=== PATIENT | male | born 1980 | race American Indian/Alaskan Native ===

== ENCOUNTER 2018-12-08 04:06 | Emergency (ER) | payer SELFPAY ==
[~2018-12-08 04:06] MED LIST: BSS 1 DROPS, TETRACAINE 0.5% 1 DROPS, FUL-GLO 1 MG OU ONE
[2018-12-08 04:17] VITALS: BP 144/84
[2018-12-08] MEDS ORDERED: TETRACAINE 0.5% ONE (04:49)
[2018-12-08] MEDS ORDERED: FUL-GLO OP ONE (04:49)
--- NOTE | 2018-12-08 04:59 | Emergency Department Report ---
Eye Injury/Foreign Body - HPI Duration: 3 Days Eye Location: Right Severity: Moderate Eye Symptoms: Eye Pain: Yes, Eye Redness: Yes, Grinding/Hammering Metal: Yes, Contact Lens Use: No, Recalls Injury: Yes, Photophobia: Yes Other History: 38-year-old -[place] male presents to the emergency room for right eye redness and drainage since Saturday and worsening. Patient reports he feels like debris from a shotgun to his eye. 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 Patient does admit to photophobia watery eyes redness and pain and tearing. Patient reports when taken ibuprofen which she reports has not helped much for the pain. Patient has no known drug allergies currently takes no medications on a daily basis. ED Review of Systems ROS: Stated complaint: EYE PAIN Other details as noted in HPI Comment: All other systems reviewed and negative Eyes: eye pain (right) ED Past Medical Hx - Past Medical History Hx Hypertension: Yes - Surgical History Past Surgical History?: No - Social History Smoking Status: Current Every Day Smoker Substance Use Type: None - Medications Home Medications: Home Medications Medication Instructions Recorded Confirmed Last Taken Type Erythromycin [Erythromycin Ophth 1 applic OD QID 10 Days #1 tube 12/08/18 Unknown Rx Oint] Eye Injury Exam - Exam General: Vital signs noted. No distress. Alert and acting appropriately. - Visual Acuity Left Vision Acuity Degree: 20/25 Right Vision Acuity Degree: 20/20 Eye Exam: Right Injection, Right EOMI, Right Eye Foreign Body, Right Fluorescein Uptake, Right Photophobia Bilateral Vision Acuity Degree: 20/20 ED Course Vital Signs 12/08/18 04:13 Temperature 98.2 F Pulse Rate 92 H Respiratory 16 Rate Blood Pressure 144/84 O2 Sat by Pulse 100 Oximetry ED Medical Decision Making - Medical Decision Making Patient has been evaluated by this provider in fast track. Fluorescein exam shows uptake 3:00 foreign body. Provider was able to remove foreign body with tip of a Q-tip. Patient reports that it feels much better eye was flushed out with balance sodium solution. Discussed with patient I will placed him on erythromycin ointment 10 days. Patient is to follow-up with car wiper I will list several below for his convenience. Critical care attestation.: If time is entered above; I have spent that time in minutes in the direct care of this critically ill patient, excluding procedure time. ED Disposition Clinical Impression: Foreign body in eye Qualifiers: Encounter type: initial encounter Laterality: right Qualified Code(s): T15.91XA - Foreign body on external eye, part unspecified, right eye, initial encounter Disposition: TO HOME OR SELFCARE Is pt being admited?: No Does the pt Need Aspirin: No Condition: Stable Instructions: Eye Foreign Body (ED) Additional Instructions: Continue with ibuprofen as needed for pain. Please use antibiotic eye ointment as prescribed. Follow-up with an car wiper I have listed several below for your convenience. Prescriptions: Erythromycin [Erythromycin Ophth Oint] 1 applic OD QID 10 Days #1 tube Referrals: PRIMARY CARE, [Primary Care Provider] - 3-5 Days Forms: Work/School Release Form(ED)
== END 2018-12-08 05:11 | disposition home or self-care (01) ==
LOC: ED 04:06
DX: T15.91XA Foreign body on external eye, part unspecified, right eye, initial encounter (principal); F17.200 Nicotine dependence, unspecified, uncomplicated; I10 Essential (primary) hypertension; X58.XXXA Exposure to other specified factors, initial encounter; Y93.89 Activity, other specified; Y92.69 Other specified industrial and construction area as the place of occurrence of the external cause; Y99.8 Other external cause status